=== PATIENT | male | born 1960 | race Caucasian/White ===

== ENCOUNTER → 2025-07-12 08:33 | Outpatient (REF) | payer MEDICARE, OTHER, SELFPAY ==
[2025-07-12 09:38] LABS: Hematocrit 44.6 % (39.0-52.0); Hemoglobin 14.9 g/dL (13.0-18.0); Mean Corp Hgb Conc. 33.4 g/dL (33.0-37.0); Mean Corpuscular Volume 91.6 fL (80.0-94.0); Nucleated Red Blood Cells % 0 % (-); Platelet Count 244 10^3/uL (130-400); Red Cell Dist. Width 12.4 % (11.5-14.5)
[2025-07-12 09:54] LABS: ALT (SGPT) < 10 U/L (0-50); AST (SGOT) 23 U/L (17-59); Albumin 4.3 g/dl (3.5-5.0); Alkaline Phosphatase 173 U/L (38-126); Blood Urea Nitrogen 17 mg/dl (9-20); Calcium 9.5 mg/dl (8.4-10.2); Carbon Dioxide 29 mmol/L (22-30); Chloride 105 mmol/L (98-107); Glucose 111 mg/dl (70-99); Potassium 4.4 mmol/L (3.5-5.1); Sodium 137 mmol/L (135-145); Total Protein 7.1 g/dl (6.3-8.2); eGFR > 60.00
== END ==
LOC: SDSPAT 08:33
PROVIDERS: ATTENDING PHYSICIAN Internal Medicine Interventional Cardiology; FAMILY PHYSICIAN Physician Assistant; OTHER PHYSICIAN Internal Medicine
DX: Q21.12 Patent foramen ovale (principal)
CPT/HCPCS: 36415; 80053; 85025; 93005

== ENCOUNTER 2025-07-17 07:41 | Day surgery (SDC) | payer MEDICARE, OTHER, SELFPAY ==
[2025-07-12 09:08] VITALS: BMI 45.5
[2025-07-17] VITALS (11 sets, daily range): BP systolic 105–154; BP diastolic 65–93
[2025-07-17] MEDS: ANCEF 10 IV (11:00)
[2025-07-17 11:49] LABS: ACT-LR - POC 327 Seconds (116-155)
--- NOTE | 2025-07-17 14:58 | ITS.CL.PN ---
Parallel Computing Software Engineer - Procedure Note
Procedure
Procedure Note:
RIGHT HEART CATHETERIZATION (WITH SHUNT RUN) AND PATENT FORAMEN OVALE (PFO) CLOSURE
Date of procedure: July 17, 2025
Referring physician: Cornell Ibarra MD
Pre-op diagnosis: Cryptogenic stroke, presence of PFO
Post-op diagnosis: Cryptogenic stroke, presence of PFO
Indication: Cryptogenic stroke
Procedures performed: 1. Percutaneous PFO closure with 30 mm Amplatzer Talisman PFO Occluder (REF #[id number] ; LOT #[id number])
2. Right heart catheterization.
3. Ultrasound-guided access
secondary connector armature: Delphine Eid MD, [facility], [facility]
Type of echocardiography: Intracardiac Echocardiography (ICE)
Access:
1. Two 9 [place] sheaths (9Fr x 11cm and 9Fr x 25cm) in the right common femoral vein using a micropuncture kit under US guidance.
Ultrasound was utilized for vascular access. The right femoral vein were visualized under ultrasound, and the vessel was patent. An image was stored permanently in the patient's medical record. Under direct ultrasound guidance, two [place]
sheaths (11cm and 23cm) were inserted into the right common femoral vein, using a micropuncture kit through a modified Seldinger technique.
RIGHT HEART CATHETERIZATION
Hemodynamics (mmHg):
RA (m) : 26
RV (s/d,m) : 39/20, 26
PA (s/d, m) : 38/27; 31
PCWP (m) : 30
PA saturation: 76.8% on 60% FiO2
AO saturation non-invasively 96% on 60% FiO2
RA saturation: 75.6% on 60% FiO2
RADHA saturation: 98.3% on 60% FiO2
Cardiac Output: 6.58 L/min by Angelina calculation
Cardiac Index :2.9 L/min/m-2 by Angelina calculation
Procedure:
The patient was brought to the interventional cardiology suite in fasting state. The patient was given Plavix 600mg pre-procedurally and Ancef IV was given by Anesthesia. Bilateral femoral areas were prepped and draped in standard sterile fashion.
The right femoral vein was accessed about 1cm apart twice using a modified Seldinger technique and two 9 [place] sheaths were placed 1 is below the other (short 9 [place] by 11 cm on the top and a long 9 [place] by 25 cm at the bottom. Full dose IV
heparin was given to achieve an ACT greater than 300 seconds, which was maintained throughout the procedure. After confirming that there was no significant step up on the shunt run by performing a right heart catheterization, ICE catheter was
advanced through the 9 [place] by 25 cm venous sheath and basic images were obtained and saved including the view of the interatrial septum and the PFO seen by color Doppler. Using ICE and fluoroscopy guidance, a 0.035' J wire was advanced from the
right femoral vein and up into the right atrium and a 6Fr. multipurpose catheter was advanced over this wire. The J-wire was removed and catheter was flushed. A Hughes wire was advanced through the multipurpose catheter and after multiple passes we
successfully crossed the PFO into the left atrium. The multipurpose catheter was advanced over the wire into the left upper pulmonary vein. The wire was removed and the catheter was flushed. A 0.035 superstiff Amplatz wire was advanced through the
multipurpose catheter and parked into the left upper pulmonary vein.
The multipurpose catheter was removed. The 9 [place] sheath was removed. Based on the anatomy (interatrial septal aneurysm), we decided to move forward with implantation of a 30 mm Amplatzer Talisman PFO Occluder device. On the back table, we
turned our attention to prepping the closure device. A 30 mm Amplatzer Talisman PFO Occluder device was placed in a bowl of heparinized saline. The Tuohy-Kathy valve and its extension were appropriately flushed. The device was submerged in saline
and the valve and extension were slowly flush with water while the occlusion device was retracted into it, ensuring that the device was completely de-aired.
The 9 [place] Talisman delivery sheath was advanced over the Super Stiff Amplat'sz wire into the IVC. The dilator was retracted at this point to completely de-aired the system. The sheath itself was then advanced over the Super Stiff Amplatz wire
into the left atrium and the Super Stiff wire was taken out. The sheath was de-aired and flushed. We connected the sheath with the closure device assembly with a wet to wet connection. The occluder was advanced through the sheath and into the left
atrium. Left atrial disc was deployed. The entire assembly was retracted until the left atrial disc was firmly against the interatrial wall under fluoroscopy and ICE guidance. The right atrial disc was deployed under tension and allowed to settle on
the right atrial side of the septum.
Echocardiographic images were obtained in multiple views showing good placement of the occlusion device. The interatrial septum is clearly visible between the 2 discs. The discs do not appear to be interfering with the aorta. After performing
appropriate pushing and pulling of the device to ensure good placement ([place] wiggle), the device was released. Once again, echocardiography confirmed good placement. ICE catheter was then taken out.
The Talisman sheath and the 9Fr x 25mm sheath was removed from the right femoral vein and a [id number] suture was placed over access site with good hemostasis. Additional manual pressure was held for 10 minutes. The patient tolerated the
procedure well with no acute complications. She remained hemodynamically stable throughout the procedure.
Conclusions:
1. Successful ICE guided percutaneous PFO closure with 30 mm Amplatzer Talisman PFO Occluder (REF #[id number] ; LOT #[id number]) with no acute complications.
Recommendations:
1. Routine care post PFO closure.
2. Limited weight bearing for 2 days.
3. DAPT with aspirin and clopidogrel for 6 months, followed by aspirin indefinitely.
4. Limited echocardiogram prior to discharge.
5. Removal of eeeqbq-sz-jtqfz stitch prior to discharge.
6. Repeat echocardiogram in 1 month with outpatient cardiology follow up.
Delphine Eid MD, FACC, [facility]
[2025-07-17] MEDS: TYLENOL 650 MG PO (16:18)
--- NOTE | 2025-07-17 16:21 | W.PN.UPDATE ---
Update Note
Progress Note Update
65 yo WM s/p PFO closure (same day). He denies cp, sob, miriam diet, voiding, EKG SR, R fem site c/d/i no HT, Echo with PFO in place, no shunting or effusion. He will continue DAPT ASA/Plavix. He will have f/u [facility] with bubble in 1 mo. He will f/u
[facility] in 1 mo. He is for d/c home after 520p.
[2025-07-18 07:58] LABS: ACT-LR - POC 290 Seconds (116-155)
[2025-07-18 07:58] LABS: ACT-LR - POC 266 Seconds (116-155)
[2025-07-18 07:58] LABS: ACT-LR - POC 302 Seconds (116-155)
== END 2025-07-17 17:19 | disposition home or self-care (01) ==
LOC: CATH 07:41
PROVIDERS: ATTENDING PHYSICIAN Internal Medicine Interventional Cardiology; FAMILY PHYSICIAN Physician Assistant; OTHER PHYSICIAN Internal Medicine Cardiovascular Disease
DX: Q21.12 Patent foramen ovale (principal); Z87.74 Personal history of (corrected) congenital malformations of heart and circulatory system; Z86.73 Personal history of transient ischemic attack (TIA), and cerebral infarction without residual deficits; Z79.82 Long term (current) use of aspirin; R47.1 Dysarthria and anarthria; E78.5 Hyperlipidemia, unspecified; I10 Essential (primary) hypertension; E66.01 Morbid (severe) obesity due to excess calories; Z68.42 Body mass index [BMI] 45.0-49.9, adult; M19.90 Unspecified osteoarthritis, unspecified site; G20.A1 Parkinson's disease without dyskinesia, without mention of fluctuations; G89.29 Other chronic pain; G47.33 Obstructive sleep apnea (adult) (pediatric); G25.81 Restless legs syndrome; Z96.652 Presence of left artificial knee joint; Z79.899 Other long term (current) drug therapy; Z79.02 Long term (current) use of antithrombotics/antiplatelets; I35.1 Nonrheumatic aortic (valve) insufficiency
CPT/HCPCS: 93580; 85347; 93005; 93306; C1759; C1769; C1817; C1892; C1894

== ENCOUNTER 2025-07-31 03:48 | Emergency (ER) | payer MEDICARE, OTHER, SELFPAY ==
[2025-07-31 03:55] VITALS: BP 151/95
[2025-07-31 04:10] VITALS: BMI 48.0
[2025-07-31 04:25] VITALS: BP 131/88
--- NOTE | 2025-07-31 04:35 | ED.GENMED ---
History of Present Illness
General
Chief Complaint: Abdominal Pain
Source: patient
Exam Limitations: none
Time Seen by Provider: 07/31/25 04:08
Nursing documentation reviewed up to this point in time: agreed with
History of Present Illness
History of Present Illness:
The patient is a 65-year-old male with a history of Parkinsons disease, PFO s/p repair, CVA, presenting with abdominal pain that originated approximately 3 weeks ago. The pain initially started as back pain on both the left and right sides and
subsequently progressed to the abdomen, becoming predominantly abdominal. The pain has been persistent and occasionally radiates higher up and presents with constant abdominal growling. No specific incident, such as a fall or lifting a heavy object,
triggered the onset. The patient reports associated symptoms of increased belching but denies diarrhea, vomiting, or chest pain. The pain has not worsened particularly with eating. It occasionally wakes him early in the morning. He reports a prior
episode of a urinary tract infection two weeks prior but no current urinary symptoms. The patient takes Miralax regularly as a medication. There was a mention of a prior left inguinal hernia repair and has a history of polypectomy during colonoscopy
two years ago, with tattoos marking the site for monitoring. The patient expresses concern about his family history, as his father from pancreatic cancer. He denies daily alcohol consumption.
Review of Systems
Review of Systems
All Other Systems: ROS reviewed and negative except as documented in HPI and ROS
Phy Exam
General Physical Exam
General Presentation: well appearing and no apparent distress
General age: appears stated age
General Skin: warm and dry
ENT Exam
ENT Exam: EOMI
Eye Exam
Eye Exam: PERRL
Cardiovascular Exam
Cardiovascular Exam: regular rate/rhythm, no edema and no murmur
Pulmonary Exam
Pulmonary Exam: lungs clear, no respiratory distress, no crackles and no wheezing
Gastrointestinal Exam
Gastrointestinal Exam: normal bowel sounds, soft, no pulsatile mass and non distended
Palpation: left upper quadrant: No tenderness, left lower quadrant: Mild tenderness, right upper quadrant: No tenderness and right lower quadrant: Mild tenderness
Abdominal Scars: yanet-umbilical
Auscultation of Abdomen: normal
Neurological Exam
Neurological Exam: alert, oriented x3 and CN II-XII intact
Skin Exam
Skin Exam: normal color and warm/dry
Psychiatric Exam
Psychiatric Exam: normal mood/affect
Course
Orders/Labs/Results
Orders:
Orders
07/31/25 04:21
Complete Blood Count/With Diff Urgent
Comprehensive Metabolic Panel Urgent
Lipase Urgent
Urinalysis Reflex To Culture Urgent
Date Specimen was Collected: 07/31/25
Time Specimen was Collected: 04:06
Urine Microscopic Reflex Cult Urgent
07/31/25 04:34
CT Abd/pelvis W Iv Cont Urgent
Comment:
Reason For Exam: LLQ ab pain, bilateral back pain
07/31/25 04:36
Electrocardiogram (*1) Urgent
Reason for Study: Abdominal Pain
07/31/25 05:10
Acetaminophen [Tylenol] 1,000 mg PO NOW STA
Abnormal Lab Results
07/31/25
04:21
WBC 11.2 H 10^3/uL
(4.8-10.8)
MCH 31.4 H pg
(27.0-31.0)
MPV 10.5 H fL
(7.4-10.4)
Abs Immat Gran (auto) 0.1 H 10^3/uL
(0-0.05)
Absolute Neuts (auto) 7.6 H 10^3/uL
(1.4-6.5)
Absolute Monos (auto) 0.9 H 10^3/uL
(0.1-0.6)
BUN 21 H mg/dl
(9-20)
Alkaline Phosphatase 143 H U/L
(38-126)
Urine Albumin (Reflex) 1+ A
(Neg - Trace)
07/31/25 04:21
07/31/25 04:21
Vital Signs
Initial and Last Documented VS:
Initial Vital Signs
Temp Pulse Resp BP Pulse Ox
98.4 F 81 20 151/95 97
07/31/25 03:55 07/31/25 03:55 07/31/25 03:55 07/31/25 03:55 07/31/25 03:55
Last Documented Vital Signs
Temp Pulse Resp BP Pulse Ox
98.4 F 76 16 143/87 97
07/31/25 03:55 07/31/25 04:27 07/31/25 04:27 07/31/25 05:00 07/31/25 05:45
MDM/Problems Addressed
Differential Diagnosis Includes:
ddx include diverticulitis, appendicitis, GERD, IBS, gastritis, colitis
MDM/Problems Addressed:
The patient is a 65-year-old male with a history of Parkinsons disease, PFO s/p repair, CVA, presenting with abdominal pain that originated approximately 3 weeks ago. The pain initially started as back pain on both the left and right sides and
subsequently progressed to the abdomen, becoming predominantly abdominal. He saw his PCP the other day who ordered a CT scan but patient was concerned because the pain was getting worse. On physical exam, he is well appearing, in no acute
distressed. CBC, CMP unremarkable. Urinalysis negative. CT abdomen no acute findings. Patient stable to follow up with his GI doctor as an outpatient.
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 Patient is having no light headedness, no chest pain. In light of recent heart procedure reviewed ECG with Dr. Head cloth sponger who was not concerned. Advised patient to
follow up with cards as an outpatient
Chronic conditions affecting care:
CVA, TIA, PFO, parkinson's
*Pulse Oximetry
SaO2: 97
Oxygen Mode of Delivery: Room air
Patient hypoxic: no
*Critical Care Note
Total Time (30-74mins, 75-104mins- exclusive of procedures): Not Applicable
Data Reviewed
Review of Other/Old Records Reveals: Records (reviewed cath report)
Source: patient and records
ED Attending Note
-
Portions of this chart may have been created with voice recognition software.� Occasional wrong word or��sound alike� substitutions may have occurred due to the inherent limitations of voice recognition software.
Discharge Plan
Departure
Patient Disposition: Home (Routine Discharge)
Date of Disposition: 07/31/25
Time of Disposition: 07:08
Patient with high blood pressure during this ER visit?: Yes
Condition: Good
Discharge Problem:
Abdominal pain
Instructions: Abdominal Pain, BLOOD PRESSURE
Prescriptions:
No Action
multivitamin Tablet
1 tab PO DAILY
methocarbamol 500 mg Tablet
500 mg PO TID
atorvastatin 80 mg Tablet
80 mg PO HS
carbidopa-levodopa 25-100 mg Tablet Extended Release
1 tab PO .Q3HWA
clopidogrel [Plavix] 75 mg Tablet
75 mg PO DAILY
tramadol 50 mg Tablet
50 mg PO TID
gabapentin 800 mg Tablet
800 mg PO TID
ropinirole 2 mg Tablet
2 mg PO TID
losartan 25 mg Tablet
25 mg PO DAILY
furosemide 20 mg Tablet
20 mg PO DAILY
carbidopa-levodopa 25-100 mg Tablet
3 tab PO .Q3HWA
rasagiline 0.5 mg Tablet
0.5 mg PO DAILY
aspirin 81 mg Capsule
81 mg PO DAILY
Referrals:
Mar Clark PA-C [Family Provider, Family Practice]
Activity Restrictions/Additional Instructions:
Please call Dr. Ibarra for follow up appointment and loop recorder review, ecg showed possible mobitz block.
Please call your room attendants and primary care provider for further evaluation, please relay that your CT scan was normal.
PLEASE RETURN TO THE ER SHOULD YOU DEVELOP CHEST PAIN, FEVERS OR CHILLS, NAUSEA OR VOMITING, LIGHTHEADEDNESS, DIZZINESS, FAINTING SPELLS, DARK TARRY STOOLS, RECTAL BLEEDING, NO SIGNS OR SYMPTOMS WORRISOME TO YOU.
Interventions
Interventions:
*Risk Screen - Suicide Last Done: 07/31/25 03:55
*General Assessment Last Done: 07/31/25 04:11
*Neglect/Abuse Screening Last Done: 07/31/25 04:11
*ED- Fall Risk Assessment Last Done: 07/31/25 04:11
*ED COVID-19 Vaccine History Last Done: 07/31/25 04:11
*ED Influenza Vaccine History Last Done: 07/31/25 04:11
*Nursing Disposition Last Done: 07/31/25 07:19
NP-Ogjejh-Mnytifzsvi Assessment Last Done: 07/31/25 04:11
Discharge Date and Time
Discharge Date/Time: 07/31/25 07:21
Print Language: [place]CI[place]
[2025-07-31 04:36] LABS: Hematocrit 47.3 % (39.0-52.0); Hemoglobin 16.1 g/dL (13.0-18.0); Mean Corp Hgb Conc. 34.0 g/dL (33.0-37.0); Mean Corpuscular Volume 92.2 fL (80.0-94.0); Nucleated Red Blood Cells % 0 % (-); Platelet Count 253 10^3/uL (130-400); Red Cell Dist. Width 12.3 % (11.5-14.5)
[2025-07-31 04:52] LABS: ALT (SGPT) < 10 U/L (0-50); AST (SGOT) 28 U/L (17-59); Albumin 4.7 g/dl (3.5-5.0); Alkaline Phosphatase 143 U/L (38-126); Blood Urea Nitrogen 21 mg/dl (9-20); Calcium 9.8 mg/dl (8.4-10.2); Carbon Dioxide 30 mmol/L (22-30); Chloride 101 mmol/L (98-107); Estimated Creatinine Clearance 107 ml/min; Glucose 98 mg/dl (70-99); Lipase 54 U/L (23-300); Potassium 4.3 mmol/L (3.5-5.1); Sodium 135 mmol/L (135-145); Total Protein 8.0 g/dl (6.3-8.2); eGFR > 60.00
[2025-07-31 05:00] VITALS: BP 143/87
[2025-07-31 05:10] LABS: Urine Character Clear (Clear)
[2025-07-31] MEDS: TYLENOL 1000 MG PO (05:15)
[2025-07-31 06:05] LABS: Urine Red Blood Cell 0-2 /HPF (0-2); Urine Squamous Cell 0-2 /LPF (Few); Urine White Cell 0-2 /HPF (0-5)
== END 2025-07-31 07:21 | disposition home or self-care (01) ==
LOC: EMR 03:48
PROVIDERS: EMERGENCY PHYSICIAN Student in an Organized Health Care Education/Training Program; FAMILY PHYSICIAN Physician Assistant
DX: R10.32 Left lower quadrant pain (principal); G20.A1 Parkinson's disease without dyskinesia, without mention of fluctuations; Z86.73 Personal history of transient ischemic attack (TIA), and cerebral infarction without residual deficits; Z87.74 Personal history of (corrected) congenital malformations of heart and circulatory system
CPT/HCPCS: 99284; 74177; 80053; 81003; 81015; 83690; 85025; 93005; Q9967

== ENCOUNTER → 2025-08-23 13:01 | Outpatient (REF) | payer MEDICARE, OTHER, SELFPAY ==
--- NOTE | 2025-08-23 13:59 | PTCARENOTE ---
Bubble study done with Chiquita, Composite Mechanic. #20 makenna placed left AC for study. INT removed after study. dsg applied and pressure held.
== END ==
LOC: RCS 13:01
PROVIDERS: ATTENDING PHYSICIAN Internal Medicine Interventional Cardiology; FAMILY PHYSICIAN Physician Assistant
DX: Q21.12 Patent foramen ovale (principal)
CPT/HCPCS: 93306